=== PATIENT | female | born 1955 | race Caucasian/White ===

== ENCOUNTER → 2016-10-01 | Outpatient (CLI) | payer BC ==
--- NOTE | ~2016-10-01 | US37 ---
[facility] A Service of [facility] / [facility] RADIOLOGY TEXT RESULTS PATIENT: DEREK GAO LOCATION: CNIV : 55 UNIT #: [id number] AGE: [address]: Hector Garcia MD SEX: F ORDER DR: [id number] [facility] [address] [place], [place] [address] [id number] O MR#: [id number] Acc #: [id number] NAME: DEREK GAO : 1955 SEX: F STUDY DATE/TIME: 10/01/2016 9:11 UNIT: CNIV ROOM: STUDY DESCRIPTION: US Carotid W/Doppler Bilateral Attending Physician: Hector Garcai M.D. Referring Physician: Hector Garcia M.D. Ordering Physician: Hector Garcia M.D. Primary Care Physician: Hector Garcia M.D. MEDICAL IMAGING REPORT This report is preliminary unless electronic signature is present EXAM Carotid Doppler bilateral 10/01/2016 HISTORY Right-side carotid bruit on physical examination 3 weeks ago. Evaluate for carotid stenosis. History of diabetes. TECHNIQUE Selby-scale carotid artery images were obtained, as well as Doppler waveform spectral analysis and color flow Doppler imaging. The examination was interpreted according to NASCET criteria. FINDINGS There is no hemodynamically significant stenosis in either carotid artery. Peak systolic velocity in the right and left internal carotid arteries was 94 cm/sec and 91 cm/sec respectively. Antegrade blood flow is seen both vertebral arteries. IMPRESSION No hemodynamically significant stenosis in either carotid artery. Dictated by... Trevon Martinez M.D. THIS IS AN ELECTRONICALLY VERIFIED REPORT Trevon Martinez M.D. at 10/02/2016 10:26 AM ELOY/donavon TD: 10/01/2016 21:37 JOB #: [id number] [facility] A Service of [facility] / [facility] RADIOLOGY TEXT RESULTS PATIENT: DEREK GAO LOCATION: CNIV : 55 UNIT #: [id number] AGE: [address]: Hector Garcia MD SEX: F ORDER DR: MEDICAL IMAGING REPORT Page 1 of 1 COPY
== END | disposition home or self-care (01) ==
LOC: CNIV 08:32
DX: R09.89 Other specified symptoms and signs involving the circulatory and respiratory systems (principal)
CPT/HCPCS: 93880